=== PATIENT | female | born 1950 | race Caucasian/White ===

== ENCOUNTER → 2018-08-15 | Outpatient (CLI) | payer MEDICARE ==
[~2018-08-15] MED LIST: CIPRO 500MG TA500 MG PO
== END ==
LOC: MC.RAD 07:20
DX: Z00.00 Encounter for general adult medical examination without abnormal findings (principal); Z12.31 Encounter for screening mammogram for malignant neoplasm of breast

== ENCOUNTER 2019-02-12 14:43 | Outpatient (CLI) | payer MEDICARE, OTHER ==
[~2019-02-12] VITALS: Ht 165.1 cm; Wt 63.2 kg
[2019-02-12 15:04] VITALS: BP 116/66; PULSE 68; TEMP 98
[2019-02-12] MEDS ORDERED: SYNTHROID0.05 MG/TA PO (15:19)
== END 2019-02-12 15:19 | disposition home or self-care (01) ==
LOC: EUO 14:43
DX: M81.0 Age-related osteoporosis without current pathological fracture (principal)
CPT/HCPCS: J0897

== ENCOUNTER 2019-09-09 10:04 | Outpatient (CLI) | payer MEDICARE, OTHER ==
[~2019-09-09] VITALS: Ht 165.1 cm; Wt 62.6 kg
[~2019-09-09 10:04] MED LIST changes: +SYNTHROID0.05 MG/TA PO
[2019-09-09 10:20] VITALS: BP 108/43; PULSE 73; TEMP 97.1
== END 2019-09-09 12:00 ==
LOC: EUO 10:04
DX: M81.0 Age-related osteoporosis without current pathological fracture (principal); Z79.899 Other long term (current) drug therapy
CPT/HCPCS: J0897

== ENCOUNTER → 2019-11-05 | Outpatient (CLI) | payer MEDICARE, OTHER | LOC: MC.RAD 07:00 | DX: Z12.31 Encounter for screening mammogram for malignant neoplasm of breast (principal) ==

== ENCOUNTER → 2019-12-23 | Outpatient (CLI) | payer MEDICARE, OTHER ==
[2019-12-23 15:24] LABS: CREATINE KINASE 41 U/L (30-135); CREATININE, serum 0.61 (0.52-1.25); MAGNESIUM 2.1 mg/dL (1.6-2.3)
[2019-12-23 15:28] LABS: C-REACTIVE PROTEIN < 0.5 mg/dL (0.0-0.9)
[2019-12-24 04:44] LABS: FOLATE (FOLIC ACID) 10.5 ng/mL (>=4.0)
[2019-12-24 12:13] LABS: LYME DISEASE ANTIBODIES Negative (Negative)
[2019-12-24 13:48] LABS: ANA SCREEN with REFLEX Negative (Negative); SJOGRENS SSB 9 U/mL (0-99)
== END ==
LOC: COL.LAB 14:18
PROVIDERS: Psychiatry & Neurology Neurology
DX: E53.9 Vitamin B deficiency, unspecified (principal); E53.8 Deficiency of other specified B group vitamins; E55.9 Vitamin D deficiency, unspecified; E61.1 Iron deficiency

== ENCOUNTER 2020-03-10 13:32 | Outpatient (CLI) | payer MEDICARE, OTHER ==
[~2020-03-10] VITALS: Ht 165.1 cm; Wt 63.3 kg
[2020-03-10 13:44] VITALS: BP 119/67; PULSE 62; TEMP 98.2
[2020-03-10] MEDS ORDERED: VITAMIN D31000 IU PO (13:44)
== END 2020-03-10 14:01 | disposition home or self-care (01) ==
LOC: EUO 13:32
DX: M81.0 Age-related osteoporosis without current pathological fracture (principal)
CPT/HCPCS: J0897

== ENCOUNTER 2020-03-22 13:00 | Outpatient (RCR) | payer MEDICARE, OTHER ==
[~2020-03-22 13:00] MED LIST changes: +VITAMIN D31000 IU PO
== END 2020-03-29 | disposition home or self-care (01) ==
LOC: WSPT
DX: M47.812 Spondylosis without myelopathy or radiculopathy, cervical region (principal); M50.30 Other cervical disc degeneration, unspecified cervical region; M51.9 Unspecified thoracic, thoracolumbar and lumbosacral intervertebral disc disorder; M79.602 Pain in left arm

== ENCOUNTER → 2020-07-08 | Outpatient (CLI) | payer MEDICARE, OTHER | LOC: ZCOL.LAB 13:59 | DX: Z20.828 Contact with and (suspected) exposure to other viral communicable diseases (principal) ==

== ENCOUNTER 2021-01-06 14:49 | Outpatient (CLI) | payer MEDICARE, OTHER ==
[~2021-01-06] VITALS: Ht 165.1 cm; Wt 53.2 kg
[2021-01-06 15:38] VITALS: BP 128/69; PULSE 64; TEMP 97.5
== END 2021-01-06 15:49 | disposition home or self-care (01) ==
LOC: EUO 14:49
DX: M81.0 Age-related osteoporosis without current pathological fracture (principal)
CPT/HCPCS: J0897

== ENCOUNTER 2021-08-10 13:54 | Outpatient (CLI) | payer MEDICARE, OTHER ==
[2021-08-10 14:23] VITALS: BP 132/74; PULSE 60; TEMP 97.4
== END 2021-08-10 14:26 | disposition home or self-care (01) ==
LOC: EUO 13:54
DX: M81.0 Age-related osteoporosis without current pathological fracture (principal)
CPT/HCPCS: J0897

== ENCOUNTER 2022-02-09 14:48 | Outpatient (CLI) | payer MEDICARE, OTHER ==
[~2022-02-09] VITALS: Ht 165.1 cm; Wt 53.8 kg
[~2022-02-09 14:48] MED LIST changes: +VITAMIN D250 MCG PO; -VITAMIN D31000 IU PO
[2022-02-09] MEDS ORDERED: OCUVITE1 TA1 PO (15:19)
[2022-02-09] MEDS ORDERED: ARTHRITIS PO (15:21)
[2022-02-09] MEDS ORDERED: CALCIUM 600MG+D1 TAB PO (15:22)
[2022-02-09] MEDS ORDERED: COMPLETE MULTI1 TAB PO (15:22)
[2022-02-09] MEDS ORDERED: EPA FISH OIL1 SGL PO (15:22)
[2022-02-09 15:23] VITALS: BP 100/65; PULSE 64; TEMP 98.7
== END 2022-02-09 18:52 | disposition home or self-care (01) ==
LOC: EUO 14:48
DX: M81.0 Age-related osteoporosis without current pathological fracture (principal)
CPT/HCPCS: J0897

== ENCOUNTER 2023-02-12 15:35 | Outpatient (CLI) | payer MEDICARE, OTHER ==
[~2023-02-12] VITALS: Ht 165.1 cm; Wt 52.9 kg
[~2023-02-12 15:35] MED LIST changes: +ARTHRITIS PO; +CALCIUM 600MG+D1 TAB PO; +COMPLETE MULTI1 TAB PO; +EPA FISH OIL1 SGL PO; +OCUVITE1 TA1 PO
[2023-02-12] MEDS ORDERED: OCUVITE1 TA1 PO (15:58)
[2023-02-12 16:04] VITALS: BP 114/57; PULSE 55; TEMP 97.6
== END 2023-02-12 16:30 | disposition home or self-care (01) ==
LOC: EUO 15:35
DX: M81.0 Age-related osteoporosis without current pathological fracture (principal)
CPT/HCPCS: J0897

== ENCOUNTER → 2023-11-06 | Outpatient (CLI) | payer MEDICARE, OTHER | LOC: MC.RAD 08:58 | DX: Z12.31 Encounter for screening mammogram for malignant neoplasm of breast (principal) ==